=== PATIENT | female | born 1950 | race Caucasian/White ===

== ENCOUNTER 2022-01-20 08:46 | Day surgery (SDC) | payer BC, OTHER ==
[2022-01-16 11:06] VITALS: BMI 27.4
[2022-01-20 09:02] VITALS: TEMP 98.1
[2022-01-20 11:04] VITALS: BP 112/77; PULSE 62
== END 2022-01-20 11:00 | disposition home or self-care (01) ==
LOC: FASU-ENDO 08:46
PROVIDERS: ATTEND Internal Medicine Gastroenterology
PROC: 0DJD8ZZ Inspection of Lower Intestinal Tract, Via Natural or Artificial Opening Endoscopic (ICD-10-PCS; principal; 2022-01-20 10:07)
DX: Z86.010 Personal history of colon polyps (principal); Z83.71 Family history of colonic polyps; K57.30 Diverticulosis of large intestine without perforation or abscess without bleeding